=== PATIENT | female | born 1975 | race Caucasian/White ===

== ENCOUNTER 2021-12-30 15:09 | Outpatient (CLI) | payer BC | END 2021-12-30 15:10 | disposition home or self-care (01) | LOC: BICRAD 15:09 | PROVIDERS: ATTEND Family Medicine | DX: S83.92XA Sprain of unspecified site of left knee, initial encounter (principal); M54.2 Cervicalgia; M47.812 Spondylosis without myelopathy or radiculopathy, cervical region | CPT/HCPCS: 72040 ==

== ENCOUNTER 2024-09-14 13:21 | Outpatient (CLI) | payer BC | END 2024-09-14 13:22 | disposition home or self-care (01) | LOC: BICMRI 13:21 | PROVIDERS: ATTEND Internal Medicine Hematology & Oncology | DX: C50.812 Malignant neoplasm of overlapping sites of left female breast (principal); R92.30 Dense breasts, unspecified; R92.8 Other abnormal and inconclusive findings on diagnostic imaging of breast | CPT/HCPCS: A9577; C8908 ==